=== PATIENT | female | born 1980 | race Caucasian/White ===

== ENCOUNTER 2018-09-04 13:52 | Outpatient (CLI) | payer BC | END 2018-09-04 13:53 | disposition home or self-care (01) | LOC: DTY/OP 13:52 | PROVIDERS: ATTEND Surgery | DX: E66.01 Morbid (severe) obesity due to excess calories (principal) | CPT/HCPCS: 97802 ==

== ENCOUNTER 2018-10-13 06:06 | Outpatient (CLI) | payer BC ==
--- NOTE | 2018-10-13 09:46 | RAD ---
CHEST TWO VIEWS: HISTORY: Preoperative exam. COMPARISON: None. FINDINGS: Normal cardiac silhouette. Pulmonary vessels and hilum are normal. Costophrenic angles are clear. No consolidation or mass. No pneumothorax or osseous abnormalities. IMPRESSION: No acute cardiopulmonary process. POS: SHILPA
[2018-10-13 10:37] LABS: BHCG - Serum Negative (NEGATIVE); Hemoglobin A1c 5.2 % (4.0-6.0); Pregs Control Background? CLEAR/WHITE (CLR/WHITE); Pregs Control Bar Appear? YES (CONTROL BAR)
[2018-10-13 10:38] LABS: #Basophils 0.1 thou/uL (0.0-0.2); #Eosinphils 0.1 thou/uL (0.0-0.7); #Lymphocytes 2.4 thou/uL (1.20-3.40); #Monocytes 0.6 thou/uL (0.11-0.59); #Neutrophils 5.7 thou/uL (1.40-6.50); %Basophils 0.6 % (0.0-1.0); %Eosinophils 1.2 % (0.0-10.0); %Lymphocytes 27.5 % (21.0-51.0); %Monocytes 6.2 % (0.0-10.0); %Neutrophils 64.6 % (42.0-75.0); Hemoglobin 14.5 g/dL (12.0-16.0); Mean Corpuscular HGB CONC 33.9 g/dL (32.0-36.0); Mean Corpuscular Hemoglobin 32.8 pg (27.0-31.0); Mean Corpuscular Volume 96.7 fL (78.0-98.0); Mean Platelet Volume 7.3 fL (7.4-10.4); Platelet Count 347 thou/uL (130-400); RBC Distribution Width 11.9 % (11.5-14.5); Red Blood Cell (RBC) Count 4.42 mill/uL (4.20-5.40); White Blood Cell (WBC) Count 8.9 thou/uL (4.8-10.8)
[2018-10-13 10:50] LABS: ALT (SGPT) 31 U/L (8-55); AST (SGOT) 18 U/L (5-34); Albumin 4.1 g/dL (3.5-5.0); Alkaline Phosphatase 72 U/L (40-150); Anion Gap 11 mmol/L (10-20); BUN (Urea Nitrogen) 16 mg/dL (7.0-18.7); Bilirubin, Direct 0.2 mg/dL (0.1-0.3); Bilirubin, Total 0.6 mg/dL (0.2-1.2); Calc. Creatinine Clearance 0 mL/min (70-130); Calcium 9.3 mg/dL (7.8-10.44); Carbon Dioxide 27 mmol/L (22-29); Chloride 103 mmol/L (98-107); Estimated GFR-MDRD 90; Globulin 3.3 g/dL (2.4-3.5); Glucose 89 mg/dL (70-105); Potassium 4.4 mmol/L (3.5-5.1); Protein, Total 7.4 g/dL (6.0-8.3); Sodium 137 mmol/L (136-145)
== END 2018-10-13 06:07 | disposition home or self-care (01) ==
LOC: LABBT 06:06
PROVIDERS: ATTEND Surgery
DX: Z01.818 Encounter for other preprocedural examination (principal); E66.01 Morbid (severe) obesity due to excess calories
CPT/HCPCS: 71046; 80053; 80076; 83036; 84703; 85025; 93005; 93010

== ENCOUNTER 2018-10-13 08:00 | Inpatient (IN) | payer BC ==
[2018-10-13 08:30] VITALS: BMI 49.5
[2018-10-26] MEDS ORDERED: CEFAZOLIN 2 GM/50 ML BAG ONE (07:41)
[2018-10-26] MEDS ORDERED: Heparin 5,000 UNITS/ML VIAL ONE (07:41)
[2018-10-26] MEDS ORDERED: Bupivacaine HCl 0.25%/Epi 0.0005/PF 10 ML VIAL FS ONE (08:35)
[2018-10-26] MEDS ORDERED: Bupivacaine HCl 0.5%/Epinephrine 1:200,000/PF 30 ml Vial ONE (08:37)
[2018-10-26] MEDS ORDERED: Fentanyl 250 MCG/5 ML VIAL ONE (08:41)
[2018-10-26] MEDS ORDERED: SUGAMMADEX SODIUM 500 MG/5 ML VIAL ONE (09:59)
[2018-10-26] MEDS ORDERED: Hydrocodone-Acetamin 15 ML UDCUP PO PRN (10:30)
[2018-10-26] MEDS ORDERED: Ondansetron PF 4 MG/2 ML Vial IVP PRN ×2 (10:30→11:16)
[2018-10-26] MEDS ORDERED: diphenhydrAMINE 50 MG/ML VIAL IVP PRN ×2 (10:30→11:16)
[2018-10-26] MEDS ORDERED: Dextrose 50% Abboject 50 ML SYRINGE SLOW IVP PRN (10:30)
[2018-10-26] MEDS ORDERED: CEFAZOLIN/Water 2 GM/20 ML SYRINGE SLOW IVP SCH (10:30)
[2018-10-26] MEDS ORDERED: Dextrose 5% in Water 1,000 ML IV PRN (10:30)
[2018-10-26] MEDS ORDERED: Promethazine HCl 25 MG/ML VIAL IM PRN ×3 (10:30→11:16)
[2018-10-26] MEDS ORDERED: hydrALAZINE 20 MG/ML VIAL SLOW IVP PRN (10:30)
[2018-10-26] MEDS ORDERED: Ondansetron HCl/PF 4 MG/2 ML Vial IVP PRN (10:44)
[2018-10-26] MEDS ORDERED: Promethazine HCl 25 MG/ML VIAL SLOW IVP PRN (10:44)
[2018-10-26] MEDS ORDERED: Fentanyl 100 MCG/2 ML VIAL ONE ×2 (11:08→11:44)
[2018-10-26] MEDS ORDERED: diphenhydrAMINE 50 MG/ML VIAL IM PRN (11:16)
[2018-10-26] MEDS ORDERED: diphenhydrAMINE 25 MG CAP PO PRN (11:16)
[2018-10-26] MEDS ORDERED: fentaNYL Citrate/PF 2,000 MCG in Sodium Chloride 0.9% 60 ML IV PRN (11:16)
[2018-10-26] MEDS ORDERED: Naloxone HCl 0.4 mg/ml Vial IV PRN (11:16)
[2018-10-26] MEDS ORDERED: Zolpidem Tartrate 5 MG TAB PO PRN (11:16)
[2018-10-26] MEDS ORDERED: Communication Order-Pharmacy FS SCH (11:30)
[2018-10-26] MEDS ORDERED: D5 1/2 NS w/20 mEq KCL 1,000 ML ONE (11:32)
[2018-10-26] MEDS: D5 1/2 NS w/20 mEq KCL 1,000 ML IV SCH ×2 (13:07→17:51)
[2018-10-26] MEDS: Ketorolac Tromethamine 30 MG/ML VIAL IVP SCH ×3 (13:12→23:28)
--- NOTE | 2018-10-26 14:40 | OP ---
DATE OF PROCEDURE: 10/26/2018 PREOPERATIVE DIAGNOSIS: Morbid obesity. PROCEDURE PERFORMED: Laparoscopic sleeve gastrectomy and esophagogastroscopy. INDICATIONS: This is a 38-year-old female, overweight, attempted multiple weight loss programs without success. FINDINGS: 38-Turkmen bougie used. DESCRIPTION OF PROCEDURE: After informed consent was obtained, the patient was taken to the operating room and given general endotracheal anesthesia, placed in supine position. Abdomen was prepped and draped in usual fashion. Local anesthesia infiltrated subcutaneously and deep. A 12 mm incision was performed approximately 8 inches above the xiphoid slightly to the left. Veress needle inserted. Drop test performed. Pneumoperitoneum was created to a volume of 2 L of carbon dioxide. Utilizing a bladeless 12 mm trocar and 0-degree laparoscope, direct visual entry into the abdominal cavity was performed. Pneumoperitoneum was created to a pressure of 15 mmHg and the patient placed in steep reverse Trendelenburg position. Julian liver retractor inserted. Left lobe of the liver retracted superiorly. The pylorus identified. A 12-mm port placed on the right beneath it and two 12s placed left subcostal. The omentum was taken off the greater curvature utilizing the LigaSure. Short gastrics divided with LigaSure and left crura defined with LigaSure. A 38-Turkmen bougie inserted directed into the antrum. The linear 60 mm green load stapler used to divide the antrum to the bougie, gold load used along the bougie, and a series of blues through the angle of His. Intraoperative endoscopy was performed. The video endoscope was inserted under direct vision and advanced into the sleeve. The staple line inspected. There was no bleeding. Staple line then tested by inflating the new stomach with pressurized air under water. There was no air leak. Stomach decompressed. Scope removed. The remnants of the stomach removed from the abdomen through the left lateral port site. The fascia was closed with 0 Vicryl suture and the GraNee needle. Trocars and retractors removed after hemostasis assured and the skin closed with interrupted 4-0 Rapide. Dermabond applied. The patient tolerated the procedure well, transferred to Recovery in good condition. Sponge and needle count verified correct x2. Job ID: [id number]
[2018-10-26] MEDS: CEFAZOLIN 2 GM/50 ML-DEXTROSE 2 GM in Premix Bag 1 BAG IVPB SCH ×2 (16:15→23:28)
[2018-10-26] MEDS ORDERED: Ondansetron PF 4 MG/2 ML Vial ONE (17:05)
[2018-10-26] MEDS ORDERED: Glycopyrrolate 0.2 MG/ML 5 ML SYRINGE ONE (17:05)
[2018-10-26] MEDS ORDERED: Rocuronium Bromide 10 MG/ML (10ML VIAL) ONE (17:05)
[2018-10-26] MEDS ORDERED: Lidocaine 1% PF 5 ML VIAL ONE (17:05)
[2018-10-26] MEDS ORDERED: Ketorolac Tromethamine 30 MG/ML VIAL ONE (17:05)
[2018-10-26] MEDS ORDERED: PROPOFOL 200 MG/20 ML VIAL ONE (17:05)
[2018-10-26] MEDS ORDERED: Dexamethasone 20 MG/5 ML VIAL ONE (17:05)
[2018-10-27] MEDS: D5 1/2 NS w/20 mEq KCL 1,000 ML IV SCH ×2 (03:49→10:03)
[2018-10-27] MEDS: Ketorolac Tromethamine 30 MG/ML VIAL IVP SCH (06:10)
[2018-10-27 06:57] LABS: #Lymphocytes 1.5 thou/uL (1.20-3.40); #Monocytes 0.9 thou/uL (0.11-0.59); %Basophils 0.1 % (0.0-1.0); %Eosinophils 0.1 % (0.0-10.0); %Lymphocytes 13.2 % (21.0-51.0); %Monocytes 7.8 % (0.0-10.0); %Neutrophils 78.8 % (42.0-75.0); Hemoglobin 13.6 g/dL (12.0-16.0); Mean Corpuscular HGB CONC 33.2 g/dL (32.0-36.0); Mean Corpuscular Hemoglobin 32.2 pg (27.0-31.0); Mean Platelet Volume 7.3 fL (7.4-10.4); Platelet Count 360 thou/uL (130-400); RBC Distribution Width 11.9 % (11.5-14.5); Red Blood Cell (RBC) Count 4.22 mill/uL (4.20-5.40); White Blood Cell (WBC) Count 11.5 thou/uL (4.8-10.8)
[2018-10-27 07:19] LABS: Anion Gap 9 mmol/L (10-20); BUN (Urea Nitrogen) 6 mg/dL (7.0-18.7); Calc. Creatinine Clearance 210 mL/min (70-130); Calcium 9.1 mg/dL (7.8-10.44); Carbon Dioxide 27 mmol/L (22-29); Chloride 107 mmol/L (98-107); Estimated GFR-MDRD Greater than 90; Glucose 123 mg/dL (70-105); Sodium 139 mmol/L (136-145)
[2018-10-27] MEDS ORDERED: Pantoprazole 40 MG VIAL IVP SCH (09:00)
[2018-10-27] MEDS ORDERED: Enoxaparin Sodium 40 MG/0.4 ML SYRINGE SC SCH (09:00)
--- NOTE | 2018-10-27 10:41 | RAD ---
ESOPHAGRAM: HISTORY: Obesity. Bariatric surgery. FINDINGS: Single column contrast evaluation shows postoperative changes consistent with gastric sleeve procedur e. No evidence of obstruction or leak. Fluoro time 0.2 minutes. POS: SHILPA
[2018-10-27 11:55] VITALS: BP 111/79; TEMP 98.1
--- NOTE | 2018-10-27 12:25 | DIS ---
DATE OF ADMISSION: 10/26/2018 DATE OF DISCHARGE: 10/27/2018 DISCHARGE DIAGNOSIS: Morbid obesity. PROCEDURES DURING ADMISSION: Laparoscopic sleeve gastrectomy, intraoperative esophagogastroscopy, and postoperative Gastrografin swallow. HOSPITAL COURSE: The patient was admitted and taken to the operating room where she underwent a sleeve gastrectomy. Postoperatively, she has done well. Her swallow was fine. She was tolerating liquids well. She was discharged home on hydrocodone and Zofran. She will follow up with me in 2 weeks. Job ID: [id number]
== END 2018-10-27 12:40 | disposition home or self-care (01) | DRG 621 ==
LOC: SURG A 10-26 07:25
PROVIDERS: ADMIT Surgery; ATTEND Surgery
PROC: 0DB64Z3 Excision of Stomach, Percutaneous Endoscopic Approach, Vertical (ICD-10-PCS; principal; 2018-10-26)
DX: E66.01 Morbid (severe) obesity due to excess calories (principal); Z68.42 Body mass index [BMI] 45.0-49.9, adult; D72.829 Elevated white blood cell count, unspecified; G47.30 Sleep apnea, unspecified; Z79.899 Other long term (current) drug therapy
CPT/HCPCS: 36415; 74241; 80048; 85025; 88307; 88312; 94760; C9113; J0131; J0670; J1100; J1644; J1650; J1885; J2001; J2405; J2704; J3010; J7050